=== PATIENT | female | born 1935 | race Caucasian/White ===

== ENCOUNTER 2017-12-20 16:19 | Observation (INO) | payer OTHER, MEDICAID, SELFPAY ==
[2017-12-20] VITALS (8 sets, daily range): BP systolic 128–176; BP diastolic 60–85; PULSE 66–78; RESP 13–16; TEMP 36.5–36.9; O2SAT 100; BMI 20.6
--- NOTE | 2017-12-20 16:29 | ED_ITS ---
HPI - Chest Pain General Chief Complaint: Chest Pain Stated Complaint: chest pain Time Seen by Provider: 12/20/17 16:27 Source: patient Mode of arrival: ambulatory Limitations: no limitations History of Present Illness HPI narrative: 82-year-old otherwise healthy female here for evaluation of chest pain. She states that it started sometime between 11 and 12 o'clock today. States that it is a pressure. Has had a constant retrosternal pressure since the onset but has had other ?sharp? pain that has moved around her chest. Does not get worse with palpation. He potentially gets worse with taking a deep breath. Not worse with movement of her arms. She did describe some pain in her left shoulder. No prior history of cardiovascular disease. Has not tried anything for prior to arrival. Went into the walk-in clinic who sent her here to the emergency department for evaluation. Related Data Home Medications Medication Instructions Recorded Confirmed cholecalciferol (vitamin D3) 2,000 unit PO DAILY 12/20/17 12/20/17 [Vitamin D3] conjugated estrogens [Premarin] 0.625 mg VAGINAL Q OTHER DAY 12/20/17 12/20/17 oxyquinoline-sod.lauryl sulfat 1 applic VAGINAL Q OTHER DAY 12/20/17 12/20/17 [Trimo-Oneal Jelly] Allergies Allergy/AdvReac Type Severity Reaction Status Date / Time chocolate flavor AdvReac Nausea Verified 12/20/17 16:40 MUSCLE RELAXER Allergy Intermediate TUNNEL Uncoded 08/17/17 12:12 VISION Review of Systems Constitutional Denies fatigue, Denies fever(s) and Denies headache(s) ENT Ears, Nose, Mouth, and Throat: Denies vertigo and Denies headache(s) Cardiovascular Reports chest pain, Denies syncope, Denies edema, Denies irregular heart rhythm , Denies lightheadedness, Denies palpitations and Denies dyspnea Respiratory Denies cough and Denies dyspnea Gastrointestinal Gastrointestinal: Denies abdominal pain, Denies diarrhea, Denies nausea and Denies vomiting Genitourinary Denies dysuria Musculoskeletal Denies myalgias and Reports arthralgias (Left shoulder pain) Integumentary/Breasts Denies lesions and Denies rash Neurologic Denies vertigo, Denies syncope and Denies headache(s) Endocrine Denies fatigue and Denies palpitations Hematologic/Lymphatic Denies easy bleeding and Denies easy bruising [facility] Medical History Healthy adult (Acute) Surgical History No pertinent past surgical history (Acute) Social History Smoking Status: Never smoker Exam Initial Vital Signs Initial Vital Signs: Vital Signs Temperature 98.4 F 12/20/17 16:30 Pulse Rate 70 12/20/17 16:30 Respiratory Rate 16 12/20/17 16:30 Blood Pressure 157/70 H 12/20/17 16:30 Pulse Oximetry 100 12/20/17 16:30 Const General: cooperative, healthy appearing, comfortable, well developed, well groomed and No acute distress Orientation: alert, awake and oriented x3 HENMT Head: normal to inspection and normocephalic Resp Effort & Inspection: normal respiratory effort Auscultation: clear to auscultation bilaterally Cardio Rate: regular rate Rhythm: regular rhythm Heart Sounds: no murmurs Pulses: radial pulses present GI Inspection: non-distended Palpation: soft, No firm and No tender Back/Spine/Pelvis Back: No CVA tenderness Skin Lesions: no lesions Rashes: no rashes Neuro General: alert, awake and oriented x3 Cognition: normal cognition Speech: speech normal Motor: muscle tone normal throughout Sensory Exam: no sensory deficits noted Extrem General: normal to inspection and capillary refill normal Psych Appearance: grossly normal and well kempt Scores HEART Score Heart Score history: Moderately Suspicious Heart Score EKG: Non-Specific repolarization disturbance Heart Score Age: > or = 65 years old Heart Score risk factors: No known risk factors Heart Score troponin: < or = to normal limit Heart Score Total: 4 Course Orders Ordered: ED Orders 12/20/17 16:28 XR chest 1V Stat EKG-12 Lead Stat 12/20/17 16:46 B Type Natriuretic Peptide Stat Basic Metabolic Panel Stat Complete Blood Count AUTO DIFF Stat Troponin I Stat Nitroglycerin (Nitrostat) 0.4 mg SL [id number] PRN PRN Reason: Chest Pain Last Admin: 12/20/17 17:00 Dose: 0.4 mg Discontinued Medications Aspirin (Aspirin Chew) 324 mg PO NOW ONE Stop: 12/20/17 16:46 Last Admin: 12/20/17 17:01 Dose: 324 mg Vital Signs - 8 hr 12/20/17 16:30 12/20/17 17:00 12/20/17 17:38 Temperature 98.4 F Pulse Rate 70 66 72 Respiratory Rate 16 14 Blood Pressure 157/70 H 157/85 H Blood Pressure [Left Arm] 142/65 H Pulse Oximetry 100 100 12/20/17 17:55 12/20/17 18:30 12/20/17 19:00 Temperature Pulse Rate 69 69 71 Respiratory Rate 13 16 Blood Pressure 142/65 H Blood Pressure [Left Arm] 128/60 H 136/65 H Pulse Oximetry 100 100 MDM - Chest Pain Lab Data Attestation: I reviewed the patient's lab results. Imaging Data Chest x-ray: Radiologist's impression: PROCEDURE: XR CHEST 1V INDICATIONS: Chest pain TECHNIQUE: One view of the chest was acquired. COMPARISON: None. FINDINGS: Surgical changes and devices: None. Lungs and pleura: No pleural effusions or pneumothorax. The lungs are hyperexpanded. Generalized pulmonary parenchymal coarsening can be seen. No patrick focal infiltrates are seen. Mediastinum: The cardiac contours are within normal limits. The aorta demonstrates calcification and tortuosity. Bones and chest wall: Age-appropriate bony degenerative changes are seen. No suspicious bony lesions. Overlying soft tissues appear unremarkable. IMPRESSION: No acute abnormality is seen. The lungs are hyperexpanded and there is pulmonary parenchymal coarsening, consistent with underlying emphysematous changes. Dictated by: Delfino Driver M.D. on 12/20/2017 at 16:23 Approved by: Delfino Driver M.D. on 12/20/2017 at 16:24 ECG Data Attestation: I personally reviewed and interpreted this ECG as follows: Prior ECG tracings: not available for review Interpretation: Sinus rhythm Ventricular rate is 72 Normal axis Normal QRS Normal QTC Nonspecific ST T wave changes MDM Narrative Medical decision making narrative: Patient has a heart score of 4. Nonischemic EKG. Troponin negative here in the emergency department. She was given aspirin and nitro which improved her symptoms only slightly. Patient does not have any other medical problems. I discussed the case with Dr. Wren who will admit the patient for observation and continued workup. I discussed this with the patient who expressed understanding and agreement. Patient was here in the emergency department for extended period of time secondary to issue with laboratory. They stated that they are ?computers were down ?and were unable to see the orders that were ordered here in the emergency department. These orders had to be hand walked down. It was greater than 1.5 hr after these orders were hand walked down before we received the results of the labs to include a troponin. We will admit the patient for observation. Discharge Plan Departure Patient Disposition: Admitted as Observation Clinical Impression: Chest pain
[2017-12-20] MEDS: NITROGLYCERIN 0.4 MG SL TAB SL (17:00)
[2017-12-20] MEDS: ASPIRIN 81 MG TAB 324 MG PO (17:01)
--- NOTE | 2017-12-20 20:51 | PC.NURSE ---
2039 - Patient admitted to room 202. Brought up on stretcher by nursing staff. Able to transfer self to bed with standby assist. Alert and oriented with pleasant affect. Denies pain at this time. Able to move all extremities. Oriented to room and call light, call light within reach.
[2017-12-21] VITALS (8 sets, daily range): BP systolic 113–150; BP diastolic 56–77; PULSE 65–78; RESP 16–18; TEMP 36.4–37.3; O2SAT 95–99
[2017-12-21] MEDS: NITROGLYCERIN 0.4 MG SL TAB SL (00:19)
[2017-12-21] MEDS: ACETAMINOPHEN 325 MG TABLET 650 MG PO ×3 (00:22→17:52)
--- NOTE | 2017-12-21 03:49 | PC.NURSE ---
Addendum entered by Christina Gonzalez R.N. 12/21/17 06:59: Pt stated pain came and went through the night. she stated that she was more so sore this am. pt rubs her chest/back/sides where pain is located and she states that it helps. Original Note: Assumed care of pt from outgoing shift at 2300 8-14, Pt awake. complains of pain to her substernal region and across diaphragm. Pt given nitro and tylenol as reported she had a headache. Pt stated this helped. Pt sba to BR. Pt belches and passes gas frequently. Pt belongings and call light within reach. will continue to monitor. bed alarm on. side rails upx3. Pt needing to have explanation of nitro, chest pain, use of medications and explaining medical procedure frequently as pt states she understands, then asks or says the wrong thing then needs to be reeducated.
[2017-12-21] MEDS: PANTOPRAZOLE 40 MG TABLET PO (06:49)
[2017-12-21 08:55] LABS: Cholesterol 157 mg/dL (140-199); HDL Cholesterol 82 mg/dL (40-60); LDL Cholesterol Calculated 63 mg/dL (<100); Triglycerides 60 mg/dL (35-150)
--- NOTE | 2017-12-21 09:09 | PM.HP.1 ---
History of Present Illness Date Patient Seen: 12/20/17 Time Patient Seen: 19:09 Chief complaint: chest pain Narrative: THIS VERY PLEASANT LADY WHO LIVES ALONE GIVES A HISTORY OF A CHEST PAIN ACROSS THE CHEST FOR THE MOST PART OF THE DAY CHEST PAIN IS NOT ASSOCIATED WITH ANY PALPITATIONS OR DIFFICULTY BREATHING OR ANY RADIATION THE PAIN IS SOMEWHAT WORSE ON TAKING DEEP BREATHS SHE DOES NOT COMPLAIN OF ANY COUGH AND WHEEZING FEVER CHILLS OR RIGORS SHE HAS ALWAYS HAD SOME PROBLEM WITH THE GI TRACT AND A GAS SHE HAS HAD C DIFF COLITIS IN TO 2 TIMES IN THE RECENT PAST SHE CONTINUES TO HAVE SOME LOW-GRADE CHEST PAIN IN AT THIS TIME IN THE ER Patient History Medical History Healthy adult (Acute) Surgical History No pertinent past surgical history (Acute) Family & Social History Family History: Reviewed 12/21/17 by Gilbert Mai MD Social History: household members none Prior Living Arrangements Apartment/Condo Safety & Behavioral: Feels Safe in Current Yes Environment Been Physically Hurt or No Threatened By a Person Suicidal Ideation Description None Suicide Plan Description No Plan Tobacco & Substance use: Smoking Status Never smoker alcohol intake current alcohol intake frequency holiday/special occasion Substance Use Type does not use Meds Home Medications Medication Instructions Recorded Confirmed Type cholecalciferol (vitamin D3) 2,000 unit PO DAILY 12/20/17 12/20/17 History [Vitamin D3] conjugated estrogens [Premarin] 0.625 mg VAGINAL Q OTHER DAY 12/20/17 12/20/17 History oxyquinoline-sod.lauryl sulfat 1 applic VAGINAL Q OTHER DAY 12/20/17 12/20/17 History [Trimo-Oneal Jelly] Allergies Allergy/AdvReac Type Severity Reaction Status Date / Time chocolate flavor AdvReac Mild Verified 12/20/17 21:01 MUSCLE RELAXER Allergy Intermediate TUNNEL Uncoded 12/20/17 21:01 VISION Review of Systems Review of Systems All systems reviewed & are unremarkable except as noted in HPI and below Exam Vital Signs (past 8 hours): - 12/21/17 04:45 12/21/17 07:31 Temperature 97.6 F 98.6 F Pulse Rate 65 65 Respiratory Rate 16 16 Blood Pressure 113/56 L 125/63 H Pulse Oximetry 99 98 Oxygen Delivery Method Room Air Oxygen Flow Rate 0 Const General: cooperative, healthy appearing and comfortable Nutritional Appearance: average body habitus [facility] Head: normal to inspection, normocephalic and atraumatic Ears: hearing grossly normal bilaterally Nose: external nose normal Face and sinus: normal facial exam Mouth: oral mucosae normal Eyes General: appearance normal, both eyes and all related structures Eyelids: eyelids normal Conjunctivae: conjunctivae normal Sclera: sclerae normal Pupils: PERRL EOM: EOM intact bilaterally Chest Chest: normal inspection of the chest and localized rib tenderness with anteroposterior compression (Rt 4th ic space ) Resp Effort & Inspection: normal respiratory effort and able to speak in complete sentences Auscultation: clear to auscultation bilaterally Cardio Palpation: normal PMI Rate: regular rate Rhythm: regular rhythm Heart Sounds: S1 normal and S2 normal GI Inspection: normal to inspection Palpation: soft Back/Spine/Pelvis Back: normal to inspection Skin General: no rashes or lesions noted Neuro General: alert, awake and oriented x3 Cranial Nerves: CN's II-XI intact bilaterally Cognition: normal cognition Speech: speech normal Gait: normal gait Motor: muscle tone normal throughout Sensory Exam: no sensory deficits noted Extrem General: normal to inspection Psych Appearance: grossly normal Speech and Movement: speech and movement normal Mood: congruent mood Affect: normal affect Attitude: cooperative Thought Process: normal Thought Content: normal Judgment: judgment good Objective Labs Labs: Laboratory Results - last 24 hr 12/21/17 08:10 Triglycerides 60 Cholesterol 157 LDL Cholesterol, Calc 63 HDL Cholesterol 82 H Assessment & Plan Plan: Assessment/Plan Narrative: 1. Chest pain as worse with taking deep breath and a definite tenderness in the right intercostal space 3rd and 4th status more musculoskeletal rather than cardiac Of herbal rule out obstructive coronary disease with a nuclear med myocardial perfusion scan 2. History of Clostridium C difficile colitis in the recent past Time Spent With Patient Time with patient: Greater than 35 minutes
[2017-12-21] MEDS: ENOXAPARIN 40 MG/0.4 ML SYRINGE SUBCUT (10:21)
[2017-12-21] MEDS: CHOLECALCIFEROL (VITAMIN D3) 1,000 UNIT TABLET 2000 UNIT PO (10:21)
--- NOTE | 2017-12-21 11:54 | CM.DANOTE ---
DCP: Case received, EMR reviewed and met with patient. Introduced self and role. DCP template completed with information currently available. Patient is an 82 year old female who admitted yesterday evening to the care of the hospitalist team. PCP: Dr. Paula Livingston. Payer: confirmed: [facility]. Patient came in with symptoms of chest pain. Had gone over to [id number], and they sent her to ER. Patient is alert and oriented, lives alone and is independent. 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 P: Patient will be staying another day, to enable her to have a stress test. Her plan is to go home afterward. Pham Mayberry RN/Import/Export Agent
--- NOTE | 2017-12-21 12:10 | P.PCN_ITS ---
Cardiac Stress Test Report Referral & Results Date Patient Seen: 12/21/17 Time Patient Seen: 12:08 Indication: Chest pain Rest ECG: Unremarkable Procedure Note: This was done as a Lexiscan Cardiolite due to the patient's inability to safely walk on a treadmill at all After both written and verbal informed consent the patient had an IV started by the diagnostic imaging RN and then was hooked up to the treadmill monitoring system. Patient was then injected with the Kayleigh scan material. The Cardiolite was then immediately administered. This patient spent approximately 2 min with limited upper extremity exercise. She did report some chest tightness/ breathing difficulty with the Lexiscan administration. The patient had a normal response to all infused materials. Impression: Normal response to infuse materials, details regarding possible ischemia will be available on perfusion imaging report. Please note: Actual ECG tracings can be found in the PACS system.
--- NOTE | 2017-12-21 14:20 | PM.PN.1 ---
Subjective Date Patient Seen: 12/21/17 Time Patient Seen: 13:20 Interval history: Admitted for chest pain on the right side and also on deep breathing No cough phlegm or wheezing She is awaiting his cardiac stress test Exam Vital Signs (past 8 hours): - 12/21/17 07:31 12/21/17 11:31 Temperature 98.6 F 98.1 F Pulse Rate 65 68 Respiratory Rate 16 18 Blood Pressure 125/63 H 128/67 H Pulse Oximetry 98 99 Oxygen Delivery Method Room Air Oxygen Flow Rate 0 Const General: cooperative, healthy appearing and comfortable Orientation: alert, awake and oriented x3 HENMT Head: normal to inspection Ears: hearing grossly normal bilaterally Nose: external nose normal Eyes General: appearance normal, both eyes and all related structures Eyelids: eyelids normal Conjunctivae: conjunctivae normal Sclera: sclerae normal Pupils: PERRL EOM: EOM intact bilaterally Neck Neck: normal visual inspection Thyroid: thyroid normal Chest Other: tender on RT 3RD IC Space Resp Effort & Inspection: normal respiratory effort Auscultation: clear to auscultation bilaterally Cardio Rate: regular rate Rhythm: regular rhythm Heart Sounds: S1 normal and S2 normal GI Palpation: soft Back/Spine/Pelvis Back: normal to inspection Skin General: no rashes or lesions noted Neuro General: alert, awake and oriented x3 Cognition: normal cognition Speech: speech normal Motor: muscle tone normal throughout Extrem General: normal to inspection Psych Mental Status: mental status grossly normal Mood: congruent mood Thought Process: normal Thought Content: normal Judgment: judgment good Objective Labs Labs: Laboratory Results - last 24 hr 12/21/17 08:10 Triglycerides 60 Cholesterol 157 LDL Cholesterol, Calc 63 HDL Cholesterol 82 H Assessment & Plan Plan: Assessment/Plan Narrative: Chest Pain r/o ObstructiVE CAD with NM MyoPerfusion scan Time Spent With Patient Time with patient: less than 15 minutes
--- NOTE | 2017-12-21 15:02 | PC.NURSE ---
patient c/o of uncomfortable pain in middle of chest with inspiration or with activity, denies pain at rest. Declined use of narcotics as patient says she is not use to taking any medications, agrees to try tylenol as ordered. Patient completed lexiscan per orders. Sitting up in bed visiting with friend. Call light within reach.
[2017-12-21 16:07] LABS: Add Manual Diff / Slide Review NO; B Type Natriuretic Peptide 81.5 (<100); Basophils Percent Auto 0.5 % (0-2); Eosinophils Percent Auto 0.6 % (2-4); Hemoglobin 13.1 g/dL (12.0-16.0); Lymphocytes Percent Auto 18.9 % (25-40); Mean Corpuscular HGB Conc 34.5 % (30-36); Mean Corpuscular Hemoglobin 31.1 PG (26-34); Mean Corpuscular Volume 90.2 fL (80-100); Monocytes Percent Auto 9.3 % (3-14); Neutrophils Percent Auto 70.7 % (50-75); Platelet Count 186 X10^3/uL (150-400); Red Blood Cell Count 4.22 X10^6/uL (4.0-5.2); Red Cell Distribution Width 12.7 % (11.6-14.8); White Blood Cell Count 8.1 X10^3/uL (4.5-11.0)
[2017-12-21 16:08] LABS: BUN Creatinine Ratio 18.6 (6-22); Blood Urea Nitrogen 13 mg/dL (7-17); Carbon Dioxide 29 mmol/L (22-32); Chloride 96 mmol/L (98-107); Estimated Glomerular Filt Rate > 60.0 mL/min (>60); Glucose 99 mg/dL (80-110); HEMOLYSIS 21 (0-50); Potassium 3.9 mmol/L (3.4-5.1); Sodium 132 mmol/L (137-145); Troponin I < 0.012 ng/mL (0.01-0.034)
--- NOTE | 2017-12-21 18:45 | PC.NURSE ---
Addendum entered by Deya Metzger R.N. 12/21/17 22:28: Patient had 2 BM this shift. Refused compression stockings as ordered, she said she will refuse to sleep is they are on at bedtime. Stated she will resume while awake. Educated on importance of stockings. Original Note: Eleni shift note: Patient awake and alert, no discomfort at rest. Reports discomfort to upper epigastric area provoked with deep inspiration, unable to describe and very minimal. No SOB, or dizziness. Excellent PO intake. Ambulating in room, steady gait noted. NSR. Family at bedside providing supportive care.
[2017-12-22] VITALS (7 sets, daily range): BP systolic 134–157; BP diastolic 66–97; PULSE 60–74; RESP 13–17; TEMP 36.4–36.8; O2SAT 96–100; BMI 20.6
[2017-12-22] MEDS: ACETAMINOPHEN 325 MG TABLET 650 MG PO (06:44)
[2017-12-22] MEDS: PANTOPRAZOLE 40 MG TABLET PO (07:45)
[2017-12-22] MEDS: ENOXAPARIN 40 MG/0.4 ML SYRINGE SUBCUT (11:20)
[2017-12-22] MEDS: CHOLECALCIFEROL (VITAMIN D3) 1,000 UNIT TABLET 2000 UNIT PO (11:20)
[2017-12-22] MEDS: SODIUM CHLORIDE 0.9% FLUSH 10 ML IV (11:20)
--- NOTE | 2017-12-22 14:10 | DI.NM.S_ITS ---
DATE OF SERVICE: 12/21/2017 PROCEDURE: Pharmacological perfusion study. INDICATIONS: Chest pain, hypertension, family history of coronary artery disease. RADIOPHARMACEUTICAL: 25.2 mCi technetium-99m Myoview IV was injected at stress and 26.6 mCi technetium-99m Myoview IV was injected at rest. CARDIAC STRESS: Patient underwent IV Lexiscan perfusion study under the supervision of an attending staff. Patient remained hemodynamically stable. Baseline rhythm was sinus with some nonspecific ST-T changes. Stress EKG did not reveal any new significant inducible ischemic changes. There were no significant arrhythmias. No significant symptoms reported. RAW DATA: Patient has vertical heart. There was increased subdiaphragmatic activity with hotspot in the liver as well as in the colon and near the LV apex. GATED STUDY: Resting LV ejection fraction 69 and stress LV ejection fraction about 68%. No wall motion abnormalities. TID ratio is 0.89, which is within normal limits. Resting LV end-diastolic volume is 68 mL, which is within normal limits.. Lung/heart ratio is 0.34, which is within normal limits. MYOCARDIAL PERFUSION SCAN: Stress supine, resting supine, and stress prone images were compared to each other. It appears to be that patient has predominantly fixed, small-sized mildly decreased perfusion of distal anterior wall extending into the distal anteroseptum. No reversible ischemia. CONCLUSION: 1. No obvious reversible ischemia. 2. There is a predominantly small-sized mildly decreased fixed perfusion defect of distal anterior wall extending into the distal anteroseptal. Patient has vertical heart. There was hotspot near the apex. There is increased subdiaphragmatic activity including in the liver as well as in the colon. [place] is moving well; hence, most likely we are dealing with attenuation artifact. As far as perfusion scan is concerned, this scan appears to be low-risk perfusion scan. One cannot rule out possibility of small non-transmural myocardial infarction of distal anterior wall and distal anteroseptum for sure. Clinical correlation is recommended. Evie Cheng - SUHAS/parth/ doc#: [id number]/job#: [id number] dd: 12/22/2017 13:10:00 dt: 12/22/2017 13:57:00 DICTATING MD/COPIES TO: Pepper Martínez MD COPIES MNE: LEONARDA
--- NOTE | 2017-12-22 16:07 | PC.NURSE ---
Addendum entered by Pamela Pedraza R.N. 12/22/17 16:29: Pt escorted by staff to waiting vehicle. D/C'd in stable condition. Original Note: Recieved orders for D./C home. HL in RAC d/c'd intact. Home instructions given w/apparent understanding.
--- NOTE | 2017-12-23 08:34 | PM.DS.1 ---
History of Present Illness Chief complaint: chest pain Narrative: THIS VERY PLEASANT LADY WHO LIVES ALONE GIVES A HISTORY OF A CHEST PAIN ACROSS THE CHEST FOR THE MOST PART OF THE DAY CHEST PAIN IS NOT ASSOCIATED WITH ANY PALPITATIONS OR DIFFICULTY BREATHING OR ANY RADIATION THE PAIN IS SOMEWHAT WORSE ON TAKING DEEP BREATHS SHE DOES NOT COMPLAIN OF ANY COUGH AND WHEEZING FEVER CHILLS OR RIGORS SHE HAS ALWAYS HAD SOME PROBLEM WITH THE GI TRACT AND A GAS SHE HAS HAD C DIFF COLITIS IN TO 2 TIMES IN THE RECENT PAST SHE CONTINUES TO HAVE SOME LOW-GRADE CHEST PAIN IN AT THIS TIME IN THE ER Discharge Providers Date of admission: 12/20/17 19:34 Consults: 12/20/17 21:11 Consult to Dietitian, Adult Routine Comment: Reason For Exam: nutrition score Discharge provider: Nando Mai MD Summary Discharge Diagnosis: CHEST PAIN Low Risk for Obstructive Coronory disease per Cardiology report NM Perfusion Scan Hospital Course: This patient admitted with chest pain continues to have chest pain on the right side and worse on taking a deep breath is no acute issues with respect to her cardiopulmonary system Cardiac stress test with nuclear medicine perfusion scan was low risk report Status at Discharge Functional status at discharge: independent ambulation Time Spent with Patient Greater than 30 minutes Exam Vital Signs (past 8 hours): Oxygen Delivery Method Room Air Oxygen Flow Rate 0 Objective Labs Result Diagrams: 12/20/17 16:46 12/20/17 16:46 Discharge Plan Discharge Plan Patient Disposition: Home Provider Discharge Instructions Diet: Regular Activity: As you can tolerate Discharge Data Attending Provider: Gilbert Mai Admit Date/Time: 12/20/17 19:34 Discharges patient from system. Discharge Date/Time: 12/22/17 16:20
== END 2017-12-22 16:20 | disposition home or self-care (01) ==
LOC: ED 19:26 → AC 19:35
PROVIDERS: Admitting Provider Internal Medicine; Emergency Provider Emergency Medicine; Visit Provider Internal Medicine
DX: R07.9 Chest pain, unspecified (principal)
CPT/HCPCS: 36415; 71045; 78452; 80048; 80061; 83880; 84484; 85025; 93005; 93010; 93016; 93017; 93018; 99282; 99285; G0378; A9502; J1650; J2785

== ENCOUNTER → 2021-04-29 16:24 | Outpatient (CLI) | payer OTHER, MEDICAID, SELFPAY ==
[2019-10-12 10:13] VITALS: BMI 20.6
== END ==
PROVIDERS: PCP Internal Medicine; Referring Provider Nurse Practitioner Family; Visit Provider Nurse Practitioner Family
DX: R30.0 Dysuria (principal)
CPT/HCPCS: 87077; 87086; 87186

== ENCOUNTER → 2021-11-13 13:56 | Outpatient (CLI) | payer OTHER, MEDICAID, SELFPAY ==
[2019-10-12 10:13] VITALS: BMI 20.6
[2021-11-13 14:45] LABS: Add Manual Diff / Slide Review NO; Basophils Absolute Auto 0 /uL (0-100); Basophils Percent Auto 0.5 % (0-2); Eosinophils Absolute Auto 100 /uL (0-450); Hematocrit 41.2 % (36-46); Hemoglobin 13.6 g/dL (12.0-16.0); Lymphocytes Absolute Auto 1400 /uL (1100-4500); Lymphocytes Percent Auto 23.9 % (25-40); Mean Corpuscular Hemoglobin 29.5 PG (26-34); Mean Corpuscular Volume 89.3 fL (80-100); Monocytes Absolute Auto 500 /uL (0-900); Monocytes Percent Auto 9.1 % (3-14); Neutrophils Absolute Auto 3700 /uL (1500-7000); Neutrophils Percent Auto 65.5 % (50-75); Platelet Count 197 X10^3/uL (150-400); Red Blood Cell Count 4.61 X10^6/uL (4.0-5.2); Red Cell Distribution Width 13.4 % (11.6-14.8); White Blood Cell Count 5.7 X10^3/uL (4.5-11.0)
[2021-11-13 14:52] LABS: Alanine Aminotransferase 12 IU/L (<35); Albumin 4.5 g/dL (3.5-5.0); Albumin Globulin Ratio 1.4 (1.0-2.8); Alkaline Phosphatase 97 U/L (38-126); Aspartate Aminotransferase 29 IU/L (14-36); BUN Creatinine Ratio 17.3 (6-22); Bilirubin Total 0.7 mg/dL (0.2-1.3); Blood Urea Nitrogen 13 mg/dL (7-17); Calcium 8.9 mg/dL (8.4-10.2); Carbon Dioxide 30 mmol/L (22-32); Chloride 96 mmol/L (98-107); Estimated Glomerular Filt Rate > 60 mL/min (>60); Globulin 3.3 g/dL (1.7-4.1); Glucose 95 mg/dL (80-110); HEMOLYSIS < 15 (0-50); Lipase 64 U/L (23-300); Potassium 4.2 mmol/L (3.4-5.1); Sodium 133 mmol/L (137-145); Total Protein 7.8 g/dL (6.3-8.2)
[2021-11-13 15:21] LABS: Thyroid Stimulating Hormone 2.03 uIU/mL (0.47-4.68)
== END ==
PROVIDERS: PCP Family Medicine; Referring Provider Family Medicine; Visit Provider Family Medicine
DX: E87.1 Hypo-osmolality and hyponatremia (principal); R10.13 Epigastric pain
CPT/HCPCS: 36415; 80053; 83690; 84443; 85025

== ENCOUNTER → 2021-11-16 13:08 | Outpatient (CLI) | payer OTHER, MEDICAID, SELFPAY ==
[2019-10-12 10:13] VITALS: BMI 20.6
[2021-11-17 14:11] LABS: Fecal Immunochemical Test Negative (Negative)
== END ==
PROVIDERS: PCP Family Medicine; Referring Provider Family Medicine; Visit Provider Family Medicine
DX: R10.13 Epigastric pain (principal)
CPT/HCPCS: 82274

== ENCOUNTER 2025-04-20 14:02 | Emergency (ER) | payer OTHER, MEDICAID, SELFPAY ==
[2019-10-12 10:13] VITALS: BMI 20.6
[2025-04-20] VITALS (10 sets, daily range): BP systolic 152–183; BP diastolic 72–88; PULSE 80–99; RESP 18–42; TEMP 37.1; O2SAT 93–98; BMI 14.4
--- NOTE | 2025-04-20 14:23 | DI.RAD.S_ITS ---
PROCEDURE: XR CHEST 1V INDICATIONS: suspected sepsis TECHNIQUE: One view of the chest was acquired. COMPARISON: [facility], CR, XR CHEST 1V, 12/20/2017, 16:46. FINDINGS: Surgical changes and devices: None. Lungs and pleura: Trace bilateral pleural effusions. No pneumothorax. Bilateral diffuse airspace opacities. Mediastinum: Mediastinal contours appear normal. Heart size is normal. Bones and chest wall: No suspicious bony lesions. Overlying soft tissues appear unremarkable. IMPRESSION: Diffuse bilateral airspace opacities concerning for multifocal pneumonia versus severe pulmonary edema. Trace bilateral pleural effusions. Dictated by: Romulo Mccrary M.D. on 04/20/2025 at 13:55 Approved by: Romulo Mccrary M.D. on 04/20/2025 at 13:56
[2025-04-20 14:51] LABS: Add Manual Diff / Slide Review NO; Hematocrit 36.5 % (36-46); Hemoglobin 12.3 g/dL (12.0-16.0); Lymphocytes Absolute Auto 800 /uL (1100-4500); Mean Corpuscular HGB Conc 33.7 % (30-36); Mean Corpuscular Hemoglobin 30.1 PG (26-34); Mean Corpuscular Volume 89.3 fL (80-100); Platelet Count 195 X10^3/uL (150-400)
[2025-04-20 15:03] LABS: INR 1.0 (0.9-1.3); Prothrombin Time 11.0 SECONDS (9.4-12.5)
[2025-04-20 15:06] LABS: PTT Partial Thromboplastin Tim 31 SECONDS (25.1-36.5)
[2025-04-20 15:11] LABS: Lactate (Lactic Acid) 1.4 mmol/L (0.7-2.1)
[2025-04-20 15:12] LABS: Alanine Aminotransferase 16 IU/L (<35); Albumin 4.0 g/dL (3.5-5.0); Albumin Globulin Ratio 1.1 (1.0-2.8); Alkaline Phosphatase 85 U/L (38-126); Blood Urea Nitrogen 17 mg/dL (7-17); Calcium 8.8 mg/dL (8.4-10.2); Carbon Dioxide 32 mmol/L (22-32); Chloride 94 mmol/L (98-107); Estimated Glomerular Filt Rate > 60 mL/min (>60); Globulin 3.5 g/dL (1.7-4.1); Glucose 130 mg/dL (70-99); HEMOLYSIS < 15 (0-50); Lipase 98 U/L (23-300); Potassium 4.1 mmol/L (3.4-5.1); Sodium 134 mmol/L (137-145); Total Protein 7.5 g/dL (6.3-8.2)
--- NOTE | 2025-04-20 15:14 | ED.SOB ---
HPI - SOB/Dyspnea General Chief Complaint: Shortness of Breath/Dyspnea Stated Complaint: SOB Time Seen by Provider: 04/20/25 14:50 Source: patient and family Mode of arrival: Wheelchair History of Present Illness HPI Narrative: Patient is a 89-year-old female who has history of ongoing shortness of breath does not see doctors regularly presenting today with increasing shortness of breath. She reports that she has just noticed increased shortness of breath today. She says that she always has trouble breathing especially with exertion. She denies any kind of orthopnea. No recent travel. Does not sound like she leaves the house often but does get up and move around. She denies any cough fever chills sore throat or any worsening symptoms Related Data Home Medications ?Medication ?Instructions ?Recorded ?Confirmed cholecalciferol (vitamin D3) 50 2,000 unit PO DAILY 12/20/17 12/28/24 mcg (2,000 unit) capsule (Vitamin D3) Previous Rx's ?Medication ?Instructions ?Recorded CMP Boric Acid 600mg vaginal See Rx Instructions .Route 11/17/21 suppository .COMPLEX #12 tabs oxyquinoline 0.025 %-sodium lauryl 1 ea vaginal 2XW #113.4 grams 12/14/24 sulfate 0.01 % vaginal gel (Trimo-Oneal Jelly) estradiol 0.01% (0.1 mg/gram) 1 g vaginal 3XW #42.5 grams 04/12/25 vaginal cream Allergies Allergy/AdvReac Type Severity Reaction Status Date / Time chocolate flavor AdvReac Mild Verified 04/20/25 14:12 MUSCLE RELAXER Allergy Intermediate TUNNEL Uncoded 04/20/25 14:12 VISION Patient History Medical History Vision disorder Depression (~1982) Peripheral neuropathy Rubella (~1944) Mumps (~194) Measles (~194) Hearing loss Cataracts, bilateral (~2017) Dyspepsia Healthy adult Surgical History No pertinent past surgical history Family History Father No problems noted. Mother Cancer Brother Thyroid disease Social History household members: none alcohol intake: current alcohol intake frequency: holidays/special occasions only Exam Initial Vital Signs Initial Vital Signs: Vital Signs Temperature 98.7 F 04/20/25 14:12 Pulse Rate 99 H 04/20/25 14:12 Respiratory Rate 42 H 04/20/25 14:12 Blood Pressure 152/72 H 04/20/25 14:12 Pulse Oximetry 98 04/20/25 14:12 Oxygen Delivery Method Room Air 04/20/25 14:12 GENERAL: Alert well-appearing 81-year-old female and in no acute distress. HEENT: Head atraumatic,EOMI, pupils reactive, face symmetric, moist mucous membranes , possible goiter CARDIOVASCULAR: Regular rate and rhythm without murmurs, rubs or gallops. RESPIRATORY: Clear breath sounds no respiratory distress ABDOMEN: Soft, nontender. Normoactive bowel sounds all 4 quadrants. No guarding or rebound. EXTREMITIES: Normal range of motion, no clubbing or edema. Neurovascularly intact NEUROLOGICAL: Alert and oriented x4.Normal gait and speech. Cranial nerves II through XII grossly intact. SKIN: Warm, dry, no laceration, no petechiae, no rashes or lesions. Course Orders Ordered: Discontinued Medications Furosemide (Furosemide 40 Mg/4 Ml Vial) 20 mg IV NOW ONE Stop: 04/20/25 18:52 Last Admin: 04/20/25 19:11 Dose: 20 mg Documented By: CURT Sodium Chloride (Normal Saline 0.9%) 1,000 mls @ 1,000 mls/hr IV BOLUS ONE Stop: 04/20/25 15:22 Last Infusion: 04/20/25 17:13 Dose: Infused Documented By: Admin: 04/20/25 15:32 Dose: 1,000 mls/hr Documented By: ARA Ceftriaxone Sodium 1,000 mg/ (Sodium Chloride) 100 mls @ 200 mls/hr IV NOW ONE Stop: 04/20/25 15:35 Last Admin: 04/20/25 15:57 Dose: Not Given Documented By: CURT Azithromycin 500 mg/ Dextrose 250 mls @ 250 mls/hr IV NOW ONE Stop: 04/20/25 15:35 Last Admin: 04/20/25 15:57 Dose: Not Given Documented By: CURT Sodium Chloride (Normal Saline 0.9%) 1,000 mls @ 500 mls/hr IV BOLUS ONE Stop: 04/20/25 18:20 Last Admin: 04/20/25 16:26 Dose: Not Given Documented By: CURT Sodium Chloride (Normal Saline 0.9%) 500 mls @ 1,000 mls/hr IV BOLUS ONE Stop: 04/20/25 16:53 Last Infusion: 04/20/25 17:13 Dose: Infused Documented By: Admin: 04/20/25 16:26 Dose: 1,000 mls/hr Documented By: CURT Ondansetron HCl (Ondansetron 4 Mg/2 Ml Inj) 4 mg IV NOW PRN PRN Reason: Nausea And Vomiting Ondansetron HCl (Ondansetron 4 Mg Odt) 4 mg PO NOW PRN PRN Reason: Nausea And Vomiting Vital Signs Vital signs: Vital Signs - 8 hr 04/20/25 14:12 04/20/25 15:29 04/20/25 15:30 Temperature 98.7 F Pulse Rate 99 H 83 Respiratory Rate 42 H 33 H Blood Pressure 152/72 H 155/73 H Pulse Oximetry 98 98 Oxygen Delivery Method Room Air 04/20/25 15:30 04/20/25 16:00 04/20/25 16:00 Temperature Pulse Rate 84 81 Respiratory Rate 22 20 Blood Pressure 159/80 H Pulse Oximetry 98 98 Oxygen Delivery Method 04/20/25 16:30 04/20/25 16:30 04/20/25 17:00 Temperature Pulse Rate 80 Respiratory Rate 24 Blood Pressure 160/83 H 183/87 H Pulse Oximetry 98 Oxygen Delivery Method 04/20/25 17:00 04/20/25 17:35 04/20/25 17:35 Temperature Pulse Rate 83 83 Respiratory Rate 24 Blood Pressure 173/83 H Pulse Oximetry 97 93 Oxygen Delivery Method 04/20/25 18:00 04/20/25 18:00 04/20/25 18:30 Temperature Pulse Rate 81 80 Respiratory Rate 20 18 Blood Pressure 169/82 H Pulse Oximetry 96 97 Oxygen Delivery Method 04/20/25 18:30 04/20/25 19:00 04/20/25 19:00 Temperature Pulse Rate 82 Respiratory Rate 24 Blood Pressure 174/81 H 182/88 H Pulse Oximetry 98 Oxygen Delivery Method MDM - SOB/Dyspnea Lab Data 04/20/25 14:39 04/20/25 14:39 Labs: Lab Results 04/20/25 04/20/25 Range/Units 14:39 17:20 WBC 6.3 (4.5-11.0) X10^3/uL RBC 4.08 (4.0-5.2) X10^6/uL Hgb 12.3 (12.0-16.0) g/dL Hct 36.5 (36-46) % MCV 89.3 (80-100) fL MCH 30.1 (26-34) PG MCHC 33.7 (30-36) % RDW 14.6 (11.6-14.8) % Plt Count 195 (150-400) X10^3/uL Neut % (Auto) 78.3 H (50-75) % Lymph % (Auto) 11.9 L (25-40) % [place] % (Auto) 7.7 (3-14) % Eos % (Auto) 1.3 L (2-4) % Baso % (Auto) 0.8 (0-2) % Neut # (Auto) 5000 (4632-2598) /uL Lymph # (Auto) 800 L (0094-5406) /uL [place] # (Auto) 500 (0-900) /uL Eos # (Auto) 100 (0-450) /uL Baso # (Auto) 100 (0-100) /uL PT 11.0 (9.4-12.5) SECONDS INR 1.0 (0.9-1.3) APTT 31 (25.1-36.5) SECONDS D-Dimer 1170 H (<500) ng/ml Sodium 134 L (137-145) mmol/L Potassium 4.1 (3.4-5.1) mmol/L Chloride 94 L (98-107) mmol/L Carbon Dioxide 32 (22-32) mmol/L BUN 17 (7-17) mg/dL Creatinine 0.82 (0.52-1.04) mg/dL Estimated GFR > 60 (>60) mL/min BUN/Creatinine Ratio 20.7 (6-22) Glucose 130 H (70-99) mg/dL Lactate 1.4 (0.7-2.1) mmol/L Calcium 8.8 (8.4-10.2) mg/dL Total Bilirubin 0.6 (0.2-1.3) mg/dL AST 33 (14-36) IU/L ALT 16 (<35) IU/L Alkaline Phosphatase 85 (38-126) U/L Total Creatine Kinase 21 L (30-135) U/L Troponin I < 0.012 (0.01-0.034) ng/mL NT-Pro-B Natriuret Pep 1200 H (<450) pg/mL Total Protein 7.5 (6.3-8.2) g/dL Albumin 4.0 (3.5-5.0) g/dL Globulin 3.5 (1.7-4.1) g/dL Albumin/Globulin Ratio 1.1 (1.0-2.8) Lipase 98 (23-300) U/L Procalcitonin 0.082 (<0.5) ng/mL TSH 3.12 (0.47-4.68) uIU/mL Urine RBC None seen (0-5/HPF) Urine WBC 0-1/hpf (0-5/HPF) Ur Squamous Epith Cells 0-1 /hpf (0-5/HPF) Urine Bacteria Many (>30) H (None) Ur Culture Indicated? Specimen cultured Vol Urine Centrifuged 10ml (spun) Urine Dip Bedside Urine Glucose Negative Bedside Urine Bilirubin - Negative Bedside Urine Ketone - Negative Urine Specific [place] 1.000 Bedside Urine Occult Blood +/- Bedside Urine pH 8.5 Bedside Urine Protein - Negative Bedside Urine Urobilinogen - Negative Bedside Urine Nitrite - Negative Bedside Urine Leukocytes + [address] scan - chest: Radiologist's Impression: PROCEDURE: XR CHEST 1V INDICATIONS: intubation TECHNIQUE: One view of the chest was acquired. COMPARISON: None. FINDINGS: Surgical changes and devices: Endotracheal tube with tip in the mid intrathoracic trachea 2.4 cm above the esperanza. Subdiaphragmatic enteric tube with tip overlying the gastric body. Lungs and pleura: Low lung volumes with corresponding bibasilar atelectasis.. No pleural effusions or pneumothorax. Mediastinum: Mediastinal contours appear normal. Heart size is normal. Bones and chest wall: No suspicious bony lesions. Overlying soft tissues appear unremarkable. IMPRESSION: Interval intubation and placement of a subdiaphragmatic enteric tube in appropriate position. Low lung volumes with bibasilar atelectasis. Dictated by: Romulo Mccrary M.D. on 04/20/2025 at 16:10 Chest x-ray: Radiologist's Impression: ADDENDUM This report includes an Addendum and supersedes previous reports for this exam. PROCEDURE: XR CHEST 1V INDICATIONS: suspected sepsis TECHNIQUE: One view of the chest was acquired. COMPARISON: [facility], , XR CHEST 1V, 12/20/2017, 16:46. FINDINGS: Surgical changes and devices: None. Lungs and pleura: Trace bilateral pleural effusions. Small left apical pneumothorax is less well visualized when compared to same day chest CT. Bilateral diffuse airspace opacities. Mediastinum: Mediastinal contours appear normal. Heart size is normal. Bones and chest wall: No suspicious bony lesions. Overlying soft tissues appear unremarkable. IMPRESSION: Small left apical pneumothorax, is partially obscured by the adjacent cystic change/interstitial lung disease, and is less conspicuous when compared to the same-day chest CT. Diffuse bilateral airspace opacities concerning for multifocal pneumonia versus severe pulmonary edema. This is new when compared to 2018. Trace bilateral pleural effusions. Dictated by: Romulo Mccrary M.D. 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 Pertinent findings: CBC shows no leukocytosis CMP no electrolyte abnormality glucose 130, creatinine 0.8 Troponin negative BNP 1200 Independently reviewed EKG as above Imaging studies independently reviewed: Chest x-ray small trace apical pneumothorax partially obscured by adjacent cystic changes of lungs diffuse airspace disease multifocal pneumonia versus pulmonary edema CT chest no PE but small left apical pneumothorax with out adjacent left rib injury bilateral upper lobe patchy consolidation concerning for pulmonary edema versus multifocal pneumonia Consultations: 1800 Dr. Huddleston, on-call for surgery updated patient's symptoms test results in ED to see and evaluate patient now. Recommends patient stay overnight for repeat imaging in the morning Treatments: Lasix Re-evaluations: Patient is resting comfortably no respiratory distress vitals are stable not hypoxic Discussion: Patient 89-year-old female presenting today with increasing shortness of breath. She has chronic interstitial lung disease is always short of breath that has been more short of breath for an unknown amount of time but definitely worse today. She is not hypoxic vitals are stable. Blood work is overall reassuring but she does have an elevated BNP with out history of congestive heart failure. She does not appear slightly fluid overloaded. There was concern on imaging for possible pneumonia however based on clinical presentation no leukocytosis normal lactic acid and no fever I do not suspect pneumonia. Patient also has a prior history of C diff and would prefer not to take antibiotics. There is a small left apical pneumothorax which is likely causing some increasing shortness of breath along with possible pulmonary edema. Surgery consulted recommends repeat imaging. Patient was given option of staying the night in the ED versus going home versus being admitted to hospital. Patient would like to go home for repeat imaging in the morning. This seems reasonable it is very small apical pneumothorax. They live close by they have family. I also work in the morning. I discussed the family that she needs to return if she has any worsening shortness of breath. Discharge Plan Departure Patient Disposition: Home Clinical Impression: Pneumothorax, Elevated brain natriuretic peptide (BNP) level Instructions: Pneumothorax Activity Restrictions/Additional Instructions: *You have been diagnosed with pneumothorax *What to do: RETURN TO EMERGENCY DEPARTMENT TOMORROW FOR REPEAT X-RAY, return earlier if you are having any increasing shortness of breath *Continue to take medications as directed *Follow up with your primary care provider in 2-3 days or call [phone] *Return to ER if you should have increasing shortness of breath chest pain we or any new, worsening or concerning symptoms Prescriptions: No Action CMP Boric Acid 600mg vaginal suppository See Rx Instructions .ROUTE .COMPLEX Qty: 12 0RF Rx Instructions: Remove shell and insert 1 suppository vaginally at bedtime once weekly Trimo-Oneal Jelly 0.025-0.01 % gel 1 ea vaginal 2XW Qty: 113.4 3RF estradiol 0.01 % (0.1 mg/gram) cream 1 g vaginal 3XW Qty: 42.5 3RF cholecalciferol (vitamin D3) [Vitamin D3] 2,000 unit Capsule 2,000 unit PO DAILY Referrals: Bryan Rodriguez, [Primary Care Provider, [facility]] Stand Alone Forms: Patient Portal/API
[2025-04-20 15:29] LABS: Procalcitonin 0.082 ng/mL (<0.5)
[2025-04-20] MEDS: SODIUM CHLORIDE 0.9% 1,000 ML 1000 ML IV (15:32)
[2025-04-20] MEDS: SODIUM CHLORIDE 0.9% 500 ML 1000 ML IV (16:26)
[2025-04-20 16:42] LABS: Creatine Kinase 21 U/L (30-135)
[2025-04-20 16:56] LABS: NT-proBNP (BNP-Adult 18+) 1200 pg/mL (<450); Troponin I < 0.012 ng/mL (0.01-0.034)
--- NOTE | 2025-04-20 17:08 | DI.CT.S_ITS ---
PROCEDURE: CT ANGIO CHEST PE PROTOCOL INDICATIONS: sob with high dimer TECHNIQUE: After the administration of intravenous contrast, 2 mm thick sections acquired from the pulmonary apices to the posterior costophrenic angles. 3-dimensional maximum intensity projection (MIP) coronal and sagittal reformats were then acquired through the thorax. For radiation dose reduction, the following was used: automated exposure control, adjustment of mA and/or kV according to patient size. COMPARISON: None. FINDINGS: Image quality: Diagnostic. Pulmonary arteries: Pulmonary arteries are normal in size, and demonstrate no intraluminal filling defects to suggest central pulmonary embolism. Lower Neck: No enlarged lymph nodes. Thyroid: No thyroid nodules which require sonographic follow up, per consensus guidelines. Axillae: No enlarged lymph nodes. Chest Wall: Cachectic Bones: Exaggerated kyphoscoliosis without compression deformity. Diffuse osseous demineralization.. . Lungs and Pleura: Small left apical pneumothorax. Small bilateral, left greater than right, pleural effusions. Multifocal patchy consolidations in the bilateral lung apices anterior upper lobes, and in the peripheral bilateral lower lobes are superimposed on fine reticular interstitial thickening and multifocal subpleural cystic change. These findings are concerning for an underlying, chronic interstitial lung disease. Tracheomegaly measuring 3.8 cm in AP dimension. Heart: Heart size is normal. No pericardial effusion. Thoracic Vessels: No aortic aneurysm. Mediastinum and [place]: Nonspecific enlargement of the paratracheal lymph nodes, which measure up to 9 mm by short axis (4/45. Esophagus: No wall thickening. No hiatal hernia. Upper Abdomen: Contrast within the quadrate lobe of the liver, IMPRESSION: 1. No pulmonary embolus. 2. Small left apical pneumothorax without adjacent rib injury. This may be secondary to Lucas effect or rupture of a cyst associated with the patient's likely underlying interstitial lung disease. 3. Bilateral upper lobe predominant patchy consolidations concerning for pulmonary edema versus multifocal pneumonia superimposed on interstitial lung disease. Recommend correlation with PFTs following resolution of current symptoms. 4. Mild pulmonary edema with small bilateral pleural effusions. Communication: The above findings were discussed with the ordering clinician, Dr. Wiggins, by Dr. Mccrary via telephone on 04/20/2025 at 5:07 pm [place]. Dictated by: Romulo Mccrary M.D. on 04/20/2025 at 16:57 Approved by: Romulo Mccrary M.D. on 04/20/2025 at 17:09
--- NOTE | 2025-04-20 17:14 | PC.NURSE ---
Sepsis protocol initiated. Pt declined prescribed MD STAR aware. Sepsis fluids given according to protocol for a total of Sepsis fluids 1,333.56 mL NS.
[2025-04-20 17:15] LABS: Thyroid Stimulating Hormone 3.12 uIU/mL (0.47-4.68)
[2025-04-20 18:18] LABS: Culture Indicated Urine Specimen Cultured
--- NOTE | 2025-04-20 19:00 | P.CONS_ITS ---
History of Present Illness Consult details Date Patient Seen: 04/20/25 Chief complaint: SOB Narrative: The patient is an 89 year old female who noticed while walking around the house today some shortness of breath. She has some pulmonary disease and is normally short of breath but it appeared to be more pronounced today. She presented to the emergency department at [facility] where a CT scan showed an apical pneumothorax. Of note, the patient denies any recent falls. Meds Home Medications and Allergies Home Medications ?Medication ?Instructions ?Recorded ?Confirmed ?Type cholecalciferol (vitamin D3) 50 2,000 unit PO DAILY 12/28/24 History mcg (2,000 unit) capsule (Vitamin D3) CMP Boric Acid 600mg vaginal See Rx Instructions .Rout e 11/17/21 12/28/24 Rx suppository .COMPLEX #12 tabs oxyquinoline 0.025 %-sodium lauryl 1 ea vaginal 2XW #1 13.4 grams 12/14/24 12/28/24 Rx sulfate 0.01 % vaginal gel (Trimo-Oneal Jelly) estradiol 0.01% (0.1 mg/gram) 1 g vaginal 3XW #42.5 gr ams 04/12/25 Rx vaginal cream Allergies Allergy/AdvReac Type Severity Reaction Status Date / Time chocolate flavor AdvReac Mild Verified 04/20/25 14:12 MUSCLE RELAXER Allergy Intermediate TUNNEL Uncoded 04/20/25 14:12 VISION Review of Systems Review of Systems ROS: Yes All systems reviewed with the patient and are negative except as otherwise documented Exam Vital Signs (past 8 hours): - 04/20/25 14:12 04/20/25 15:29 04/20/25 15:30 Temperature 98.7 F Pulse Rate 99 H 83 Respiratory Rate 42 H 33 H Blood Pressure 152/72 H 155/73 H Pulse Oximetry 98 98 Oxygen Delivery Method Room Air 04/20/25 15:30 04/20/25 16:00 04/20/25 16:00 Temperature Pulse Rate 84 81 Respiratory Rate 22 20 Blood Pressure 159/80 H Pulse Oximetry 98 98 Oxygen Delivery Method 04/20/25 16:30 04/20/25 16:30 04/20/25 17:00 Temperature Pulse Rate 80 Respiratory Rate 24 Blood Pressure 160/83 H 183/87 H Pulse Oximetry 98 Oxygen Delivery Method 04/20/25 17:00 Temperature Pulse Rate 83 Respiratory Rate 24 Blood Pressure Pulse Oximetry 97 Oxygen Delivery Method Oxygen Delivery Method Room Air Narrative Exam Narrative: The patient is alert and oriented Lungs show coarse breath sounds with intermittent inspiratory and expiratory wheezes. The patient is a very harsh diastolic murmur heard best at the apex and the left axilla. Objective Imaging Chest x-ray: Radiologist's impression: [address] [address] XRay Report Signed with Addenda Patient: Evie Cheng MR#: [id number] : 1935 Acct:[id number] Age/Sex: 89 / F Date of Service: 04/20/25 Loc: ED Accession Number: [id number] Procedure: XR chest 1V Ordering Provider: Cintia Wiggins D.O. ADDENDUM This report includes an Addendum and supersedes previous reports for this exam. PROCEDURE: XR CHEST 1V INDICATIONS: suspected sepsis TECHNIQUE: One view of the chest was acquired. COMPARISON: [facility] , XR CHEST 1V, 12/20/2017, 16:46. FINDINGS: Surgical changes and devices: None. Lungs and pleura: Trace bilateral pleural effusions. Small left apical pneumothorax is less well visualized when compared to same day chest CT. Bilateral diffuse airspace opacities. Mediastinum: Mediastinal contours appear normal. Heart size is normal. Bones and chest wall: No suspicious bony lesions. Overlying soft tissues appear unremarkable. IMPRESSION: Small left apical pneumothorax, is partially obscured by the adjacent cystic change/interstitial lung disease, and is less conspicuous when compared to the same-day chest CT. Diffuse bilateral airspace opacities concerning for multifocal pneumonia versus severe pulmonary edema. This is new when compared to 2018. Trace bilateral pleural effusions. Dictated by: Romulo Mccrary M.D. on 04/20/2025 at 13:55 Approved by: Romulo Mccrary M.D. on 04/20/2025 at 13:56 ADDENDUM: Dictated by: Romulo Mccrary M.D. on 04/20/2025 at 17:29 Approved by: Romulo Mccrary M.D. on 04/20/2025 at 17:30 Addendum Dictated By: Romulo Mccrary MD CT scan - chest: Radiologist's impression: [address] [address] [address] Scan Report Signed Patient: Evie Cheng MR#: [id number] : 1935 Acct:[id number] Age/Sex: 89 / F Date of Service: 04/20/25 Loc: ED Accession Number: [id number] Procedure: CT angio chest PE protocol Ordering Provider: Cintia Wiggins D.O. PROCEDURE: CT ANGIO CHEST PE PROTOCOL INDICATIONS: sob with high dimer TECHNIQUE: After the administration of intravenous contrast, 2 mm thick sections acquired from the pulmonary apices to the posterior costophrenic angles. 3-dimensional maximum intensity projection (MIP) coronal and sagittal reformats were then acquired through the thorax. For radiation dose reduction, the following was used: automated exposure control, adjustment of mA and/or kV according to patient size. COMPARISON: None. FINDINGS: Image quality: Diagnostic. Pulmonary arteries: Pulmonary arteries are normal in size, and demonstrate no intraluminal filling defects to suggest central pulmonary embolism. Lower Neck: No enlarged lymph nodes. Thyroid: No thyroid nodules which require sonographic follow up, per consensus guidelines. Axillae: No enlarged lymph nodes. Chest Wall: Cachectic Bones: Exaggerated kyphoscoliosis without compression deformity. Diffuse osseous demineralization.. . Lungs and Pleura: Small left apical pneumothorax. Small bilateral, left greater than right, pleural effusions. Multifocal patchy consolidations in the bilateral lung apices anterior upper lobes, and in the peripheral bilateral lower lobes are superimposed on fine reticular interstitial thickening and multifocal subpleural cystic change. These findings are concerning for an underlying, chronic interstitial lung disease. Tracheomegaly measuring 3.8 cm in AP dimension. Heart: Heart size is normal. No pericardial effusion. Thoracic Vessels: No aortic aneurysm. Mediastinum and [place]: Nonspecific enlargement of the paratracheal lymph nodes, which measure up to 9 mm by short axis (4/45. Esophagus: No wall thickening. No hiatal hernia. Upper Abdomen: Contrast within the quadrate lobe of the liver, IMPRESSION: 1. No pulmonary embolus. 2. Small left apical pneumothorax without adjacent rib injury. This may be secondary to Lucas effect or rupture of a cyst associated with the patient's likely underlying interstitial lung disease. 3. Bilateral upper lobe predominant patchy consolidations concerning for pulmonary edema versus multifocal pneumonia superimposed on interstitial lung disease. Recommend correlation with PFTs following resolution of current symptoms. 4. Mild pulmonary edema with small bilateral pleural effusions. Communication: The above findings were discussed with the ordering clinician, Dr. Wiggins, by Dr. Mccrary via telephone on 04/20/2025 at 5:07 pm [place]. Dictated by: Romulo Mccrary M.D. on 04/20/2025 at 16:57 Approved by: Romulo Mccrary M.D. on 04/20/2025 at 17:09 Labs 04/20/25 14:39 04/20/25 14:39 Labs: Laboratory Results - last 24 hr 04/20/25 04/20/25 14:39 17:20 WBC 6.3 RBC 4.08 Hgb 12.3 Hct 36.5 MCV 89.3 MCH 30.1 MCHC 33.7 RDW 14.6 Plt Count 195 Neut % (Auto) 78.3 H Lymph % (Auto) 11.9 L Becker % (Auto) 7.7 Eos % (Auto) 1.3 L Baso % (Auto) 0.8 Neut # (Auto) 5000 Lymph # (Auto) 800 L Becker # (Auto) 500 Eos # (Auto) 100 Baso # (Auto) 100 PT 11.0 INR 1.0 APTT 31 D-Dimer 1170 H Sodium 134 L Potassium 4.1 Chloride 94 L Carbon Dioxide 32 BUN 17 Creatinine 0.82 Estimated GFR > 60 BUN/Creatinine Ratio 20.7 Glucose 130 H Lactate 1.4 Calcium 8.8 Total Bilirubin 0.6 AST 33 ALT 16 Alkaline Phosphatase 85 Total Creatine Kinase 21 L Troponin I < 0.012 NT-Pro-B Natriuret Pep 1200 H Total Protein 7.5 Albumin 4.0 Globulin 3.5 Albumin/Globulin Ratio 1.1 Lipase 98 Procalcitonin 0.082 TSH 3.12 Urine RBC None seen Urine WBC 0-1/hpf Ur Squamous Epith Cells 0-1 /hpf Urine Bacteria Many (>30) H Ur Culture Indicated? Specimen cultured Vol Urine Centrifuged 10ml (spun) [facility] Medical History Vision disorder Depression (~1982) Peripheral neuropathy Rubella (~1945) Mumps (~194) Measles (~194) Hearing loss Cataracts, bilateral (~2017) Dyspepsia Healthy adult Surgical History No pertinent past surgical history Family History Father No problems noted. Mother Cancer Brother Thyroid disease Social History household members: none Tobacco & Substance Use alcohol intake: current Assessment & Plan Assessment and plan (1) Pneumothorax: Status: Acute (2) Interstitial lung disease: Status: Acute Plan Patient has an apical pneumothorax and we discussed her options. We recommend staying overnight in the emergency department and repeated a chest x-ray in the morning. Patient is really adamant about not staying in the hospital. Since it is unable pneumothorax and she lives only 4 blocks away we discussed possibly going home and returning in the morning to repeat a chest x-ray at that time. The patient is willing to do that. We discussed what to look out for if there is progression of the pneumothorax in instructed her to return quickly if she becomes increasingly short of breath. Time-Based Coding :: [TOTAL MINUTES] spent with patient and on the chart (including review of chart, obtaining history, exam, reviewing outside data, placing orders, documenting exam and treatment plan, and counseling patient) on [DATE]. PROFEE Charge Codes Inpatient or Observation consultation: [id number]
[2025-04-20] MEDS: FUROSEMIDE 40 MG/4 ML VIAL 20 MG IV (19:11)
== END 2025-04-20 19:38 | disposition home or self-care (01) ==
PROVIDERS: Emergency Provider Emergency Medicine; PCP Family Medicine
DX: J93.9 Pneumothorax, unspecified (principal); J84.9 Interstitial pulmonary disease, unspecified; R79.89 Other specified abnormal findings of blood chemistry
CPT/HCPCS: 36415; 71045; 71275; 80053; 81003; 81015; 82550; 83605; 83690; 83880; 84145; 84443; 84484; 85025; 85379; 85610; 85730; 87040; 87077; 87086; 96361; 96374; 99284; J1938; J7030; J7040; Q9967

== ENCOUNTER 2025-04-21 10:02 | Emergency (ER) | payer OTHER, MEDICAID, SELFPAY ==
[2019-10-12 10:13] VITALS: BMI 20.6
--- NOTE | 2025-04-21 10:13 | DI.RAD.S_ITS ---
PROCEDURE: XR CHEST 1V INDICATIONS: left apical pneumothorax TECHNIQUE: One view of the chest was acquired. COMPARISON: [facility], CR, XR CHEST 1V, 04/20/2025, 14:31. FINDINGS: Surgical changes and devices: None. Lungs and pleura: Similar size of the small left apical pneumothorax. Interval worsening of the diffuse airspace opacities throughout both lungs. Trace bilateral pleural effusions.. Mediastinum: Mediastinal contours appear normal. Heart size is normal. Bones and chest wall: No suspicious bony lesions. Overlying soft tissues appear unremarkable. IMPRESSION: Similar size of the small left apical pneumothorax. Interval worsening of the bilateral airspace opacities throughout both lungs with small bilateral pleural effusions. This is concerning for worsening pulmonary edema Dictated by: Romulo Mccrary M.D. on 04/21/2025 at 9:52 Approved by: Romulo Mccrary M.D. on 04/21/2025 at 9:54
[2025-04-21 10:14] VITALS: BP 126/63; PULSE 97; RESP 18; TEMP 36.7; O2SAT 98; BMI 15.7
--- NOTE | 2025-04-21 10:16 | ED.SOB ---
HPI - SOB/Dyspnea General Chief Complaint: Recheck/Abnormal Lab/Rx Stated Complaint: Follow up ED visit Time Seen by Provider: 04/21/25 10:13 History of Present Illness HPI Narrative: Patient is a 89-year-old female presenting today for repeat chest x-ray. She was seen evaluated by myself yesterday found to have a small left apical pneumothorax. Also thought to be slightly fluid overloaded with an elevated BNP she was given 1 dose of 20 mg IV Lasix last night she was up urinating multiple times. No significant change in breathing today. Overall feels the same. Related Data Home Medications ?Medication ?Instructions ?Recorded ?Confirmed cholecalciferol (vitamin D3) 50 2,000 unit PO DAILY 12/20/17 12/28/24 mcg (2,000 unit) capsule (Vitamin D3) Previous Rx's ?Medication ?Instructions ?Recorded CMP Boric Acid 600mg vaginal See Rx Instructions .Route 11/17/21 suppository .COMPLEX #12 tabs oxyquinoline 0.025 %-sodium lauryl 1 ea vaginal 2XW #113.4 grams 12/14/24 sulfate 0.01 % vaginal gel (Trimo-Oneal Jelly) estradiol 0.01% (0.1 mg/gram) 1 g vaginal 3XW #42.5 grams 04/12/25 vaginal cream Allergies Allergy/AdvReac Type Severity Reaction Status Date / Time chocolate flavor AdvReac Mild Verified 04/21/25 10:14 MUSCLE RELAXER Allergy Intermediate TUNNEL Uncoded 04/21/25 10:14 VISION Patient History Medical History Vision disorder Depression (~1982) Peripheral neuropathy Rubella (~194) Mumps (~194) Measles (~194) Hearing loss Cataracts, bilateral (~2017) Dyspepsia Healthy adult Surgical History No pertinent past surgical history Family History Father No problems noted. Mother Cancer Brother Thyroid disease Social History household members: none Smoking Status: Never smoker alcohol intake: current alcohol intake frequency: holidays/special occasions only Exam Initial Vital Signs Initial Vital Signs: Vital Signs Temperature 98.1 F 04/21/25 10:14 Pulse Rate 97 H 04/21/25 10:14 Respiratory Rate 18 04/21/25 10:14 Blood Pressure 126/63 04/21/25 10:14 Pulse Oximetry 98 04/21/25 10:14 Oxygen Delivery Method Room Air 04/21/25 10:14 GENERAL: Alert pleasant 89-year-old and in no acute distress. HEENT: Head atraumatic,EOMI, pupils reactive, face symmetric, moist mucous membranes CARDIOVASCULAR: Regular rate and rhythm without murmurs, rubs or gallops. RESPIRATORY: Mild tachypnea no significant rales or rhonchi ABDOMEN: Soft, nontender. Normoactive bowel sounds all 4 quadrants. No guarding or rebound. EXTREMITIES: Normal range of motion, no clubbing or edema. Neurovascularly intact NEUROLOGICAL: Alert and oriented x4.Normal gait and speech. Cranial nerves II through XII grossly intact. SKIN: Warm, dry, no laceration, no petechiae, no rashes or lesions. Course Orders Ordered: ED Orders 04/21/25 10:13 Chest [XR chest 1V] Stat Vital Signs Vital signs: Vital Signs - 8 hr 04/21/25 10:14 Temperature 98.1 F Pulse Rate 97 H Respiratory Rate 18 Blood Pressure 126/63 Pulse Oximetry 98 Oxygen Delivery Method Room Air MDM - SOB/Dyspnea Imaging Data Chest x-ray: Radiologist's Impression: PROCEDURE: XR CHEST 1V INDICATIONS: left apical pneumothorax TECHNIQUE: One view of the chest was acquired. COMPARISON: [facility], , XR CHEST 1V, 04/20/2025, 14:31. FINDINGS: Surgical changes and devices: None. Lungs and pleura: Similar size of the small left apical pneumothorax. Interval worsening of the diffuse airspace opacities throughout both lungs. Trace bilateral pleural effusions.. Mediastinum: Mediastinal contours appear normal. Heart size is normal. Bones and chest wall: No suspicious bony lesions. Overlying soft tissues appear unremarkable. IMPRESSION: Similar size of the small left apical pneumothorax. Interval worsening of the bilateral airspace opacities throughout both lungs with small bilateral pleural effusions. This is concerning for worsening pulmonary edema Dictated by: Romulo Mccrary M.D. on 04/21/2025 at 9:52 MDM Narrative Medical decision making narrative: Patient 89-year-old female presenting today for repeat x-ray for left apical pneumothorax. No significant changes in breathing x-ray today confirms similar size no significant progression. At this time supportive care only. Needs follow-up outpatient. I have spoken with the daughter about this she is in town for a little bit longer she will call PCP tomorrow to schedule follow up appointment. Dr. Huddleston surgery updated on new chest x-ray agrees with outpatient follow-up and repeat x-ray Discharge Plan Departure Patient Disposition: Home Clinical Impression: Pneumothorax Instructions: Pneumothorax Activity Restrictions/Additional Instructions: *You have been diagnosed with pneumothorax *What to do: At this time please follow-up with Dr. Rodriguez. You will likely need repeat imaging may need a pulmonology consult *Continue to take medications as directed *Follow up with your primary care provider in 2-3 days or call [phone] *Return to ER if you should have increasing chest pain shortness of breath weakness or any new, worsening or concerning symptoms Prescriptions: No Action CMP Boric Acid 600mg vaginal suppository See Rx Instructions .ROUTE .COMPLEX Qty: 12 0RF Rx Instructions: Remove shell and insert 1 suppository vaginally at bedtime once weekly Trimo-Oneal Jelly 0.025-0.01 % gel 1 ea vaginal 2XW Qty: 113.4 3RF estradiol 0.01 % (0.1 mg/gram) cream 1 g vaginal 3XW Qty: 42.5 3RF cholecalciferol (vitamin D3) [Vitamin D3] 2,000 unit Capsule 2,000 unit PO DAILY Referrals: Bryan Rodriguez DO [Primary Care Provider, [facility]] Stand Alone Forms: Patient Portal/API
== END 2025-04-21 11:57 | disposition home or self-care (01) ==
PROVIDERS: Emergency Provider Emergency Medicine; PCP Family Medicine
DX: J93.9 Pneumothorax, unspecified (principal)
CPT/HCPCS: 71045; 99281; 99283